=== PATIENT | female | born 1970 ===

== ENCOUNTER 2018-11-17 20:11 | Emergency (ER) | payer OTHER ==
[2018-11-17 20:38] VITALS: O2SAT 99
--- NOTE | 2018-11-17 21:08 | C.PDOC ---
History Of Present Illness 47 year old female presents to the ER with lower back pain for the past 3 hours. Patient states she has been moving furniture all weekend, today she felt some mild pain which began to worsen with movement and deep breathing. Denies dysuria, hematuria, weakness, numbness, or incontinence. Time Seen by Provider: 11/17/18 20:29 Chief Complaint (Nursing): Back Pain History Per: Patient History/Exam Limitations: no limitations Onset/Duration Of Symptoms: Hrs (3) Current Symptoms Are (Timing): Still Present Quality Of Discomfort: Unable To Describe Previous Symptoms: None Associated Symptoms: None Exacerbating Factor(s): Movement, Other (Deep inspiration) Recent travel outside of the [place]: No Past Medical History Reviewed: Historical Data, Nursing Documentation, Vital Signs Vital Signs: Last Vital Signs Temp 97.7 F 11/17/18 20:22 Pulse 77 11/17/18 20:22 Resp 18 11/17/18 20:22 BP 138/95 H 11/17/18 20:22 Pulse Ox 99 11/17/18 20:22 Surgical History: Appendectomy Family History: States: No Known Family Hx - Social History Hx Alcohol Use: No Hx Substance Use: No - Immunization History Hx Tetanus Toxoid Vaccination: Yes Hx Influenza Vaccination: Yes Hx Pneumococcal Vaccination: Yes Review Of Systems Genitourinary: Negative for: Dysuria, Incontinence, Hematuria Musculoskeletal: Positive for: Back Pain Neurological: Negative for: Weakness, Numbness Physical Exam - Physical Exam Appears: Non-toxic Skin: Normal Color, Warm, Dry Head: Atraumatic, Normacephalic Eye(s): bilateral: Normal Inspection Gastrointestinal/Abdominal: Soft, No Tenderness Back: No Vertebral Tenderness, Paraspinal Tenderness (left sided with muscle spasm), No Other (Hematoma, Lesion) Extremity: Normal ROM (x4) Neurological/Psych: Oriented x3, Normal Speech, Normal Motor, Normal Sensation Gait: Steady ED Course And Treatment O2 Sat by Pulse Oximetry: 99 (Room air) Pulse Ox Interpretation: Normal Progress Note: Flexeril and toradol administered. Patient reports improvement of pain, she is ambulatory in the ER with steady gait, vitals are stable, will discharge home with Rx and instructions to follow up with PMD. Disposition Counseled Patient/Family Regarding: Diagnosis, Need For Followup, Rx Given - Disposition Disposition: HOME/ ROUTINE Disposition Time: 21:01 Condition: STABLE Additional Instructions: Please follow up with PMD Take medications as directed Return to ER if worse Prescriptions: Cyclobenzaprine [Cyclobenzaprine HCl] 10 mg PO HS #7 tab Ibuprofen [Motrin Tab] 800 mg PO QID #20 tab Instructions: Low Back Pain (DC), Do I Need an X-ray (or Other Test) for Low Back Pain? Forms: [employer] (Haitian), Work Excuse Print Language: LITHUANIAN - POA Present On Arrival: Falls Or Trauma - Clinical Impression Clinical Impression: Low back strain - PA / [employer]DER / Resident Statement MD/DO has reviewed & agrees with the documentation as recorded. - Scribe Statement The provider has reviewed the documentation as recorded by the Scribe Howard Gonzales All medical record entries made by the Mathew were at my direction and personally dictated by me. I have reviewed the chart and agree that the record accurately reflects my personal performance of the history, physical exam, medical decision making, and the department course for this patient. I have also personally directed, reviewed, and agree with the discharge instructions and disposition.
[2018-11-17 21:26] VITALS: BP 112/76; PULSE 60; RESP 17; TEMP 98.2
== END 2018-11-17 21:15 | disposition home or self-care (01) ==
LOC: C.ER 20:11
DX: S39.012A Strain of muscle, fascia and tendon of lower back, initial encounter (principal); X58.XXXA Exposure to other specified factors, initial encounter
CPT/HCPCS: 96372; 99284; J1885